=== PATIENT | female | born 1975 | race Caucasian/White ===

== ENCOUNTER 2024-09-12 03:04 | Inpatient (IN) | payer OTHER, SELFPAY ==
[2024-09-11 18:11] VITALS: BP 140/93
--- NOTE | 2024-09-11 18:31 | ED.GENMED ---
History of Present Illness
General
Chief Complaint: Abdominal Pain
Source: patient
Exam Limitations: none
Time Seen by Provider: 09/11/24 18:31
Nursing documentation reviewed up to this point in time: agreed with
History of Present Illness
History of Present Illness:
Note:
CHIEF COMPLAINT(S)
Abdominal pain and nausea.
HISTORY OF PRESENT ILLNESS
The patient is a 48-year-old female who presented with abdominal pain persisting since last night. The onset of her symptoms can be traced back approximately two weeks ago during a trip to [place], where she ingested oysters. The following day, she
and her daughter experienced symptoms consistent with food poisoning, including vomiting and diarrhea, with discomfort predominantly in the lower abdomen. By the Friday following, the patients pain had relocated to the upper abdomen, accompanied by
vomiting. After this episode, symptoms mostly resolved, but the patient noted intermittent diarrhea, which she ascribes to her irritable bowel syndrome. Last night, around 8:00 PM, the patients upper abdominal pain reemerged, characterized by severe
and persistent discomfort that she described as a intense pain. She likened the sensation to her insides being a balloon under pressure. The pain is diffuse but more pronounced on the right side, with occasional extension to the flanks. It is
described as constant, with periods of stabbing pain and persistent discomfort that does not relieve after bowel movements, but subsided briefly following an episode of vomiting. The patient reported a brief period of sleep following vomiting last
night, but awoke with the pain continuing. The patient denies blood in stools, melena, and regular use of non-steroidal anti-inflammatory drugs. She has a history of hypertension, well-controlled on lisinopril 10 mg daily, and irritable bowel
syndrome. She reports occasional alcohol consumption but none daily. She previously underwent three sections. The patient expressed concern about the similarity of her symptoms to her sisters gallbladder issues, for which her sister
underwent surgery.
SOCIAL HISTORY
The patient has occasional alcohol use, consuming drinks a few times weekly, more frequently during vacations.
MEDICATIONS
- Lisinopril 10 mg daily for blood pressure control.
PHYSICAL EXAM
- Vital signs and nursing notes reviewed.
General: Patient is well appearing and in no acute distress; non-toxic
Skin: Warm and dry, no rashes or lesions
Head: Normocephalic, atraumatic
Eyes: Sclera non-icteric. EOMs intact.
Cardiac: Regular rate and rhythm, no murmurs
Peripheral Vascular: No lower extremity swelling or edema
Pulm: Normal respiratory effort, no wheezes, rales, or rhonchi
Abdomen: Diffuse abdominal tenderness to palpation, no guarding. Normoactive bowel sounds.
Neuro: CN II-XII intact, no focal neurologic deficits.
Psychiatric: Appropriate mood and affect.
PLAN
-CT scan of the abdomen and pelvis
-Pain management will be initiated with intravenous ketorolac (Toradol).
-Not requesting antiemetic at this time
-Patient was seen by a prior provider who requested hepatitis panel in light of recent illness and travel
DIFFERENTIAL DIAGNOSIS
The Differential Diagnosis includes, in no particular order and is not limited to:
1. Cholecystitis
2. Hepatitis
3. Peptic ulcer disease
4. Pancreatitis
5. Gastroenteritis
6. Irritable bowel syndrome exacerbation
7. Gastritis
8. Biliary colic
9. Food poisoning
10. Small bowel obstruction
CARE-UPDATE
09/11/24 - 21:06
CT scan reveals a mildly to moderately distended gallbladder without definitive wall thickening. Notable finding of common bile duct dilation measuring 8 mm with trace intrahepatic biliary dilation. Plan to obtain an ultrasound for further
evaluation of biliary structure abnormalities.
US reveals multiple small mobile tiny stones within the gallbladder. Gallbladder is distended with length of 10 cm. No evidence for gallbladder wall thickening or pericholecystic edema. There is mild diffuse intrahepatic bile duct dilation. The
common bile duct is dilated, measuring up to 10 mm.
CHART REVIEW
No prior ER physician documentation to review, no discharge summaries to review
MDM/DISPOSITION
The patient is a 48-year-old female who presented with abdominal pain persisting since last night. Primary in the upper abdomen. She is without fever. Labs reviewed, normal wbc count. Elevated LFTs. Normal T bili. Normal lipase. US concerning for
CBD dilation + gall stones, no signs of acute cholecystitis.
Reviewed case with ED attending. 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
Patient will require admission for MRCP for further evaluation in light of pain and LFT elevation.
No clinical suspicion for cholangitis, will not initiate antibiotics at this time.
Review of Systems
Review of Systems
All Other Systems: ROS reviewed and negative except as documented in HPI and ROS
Phy Exam
Physical Exam
Physical Exam:
see hpi
Course
Orders/Labs/Results
Orders:
Orders
09/11/24 18:50
0.9% Sodium Chloride 500 ml [Nss] 500 ml IV BOLUS
Ketorolac [Toradol] 15 mg IV NOW STA
09/11/24 18:51
CT Abd/pelvis W Iv Cont Urgent
Comment:
Reason For Exam: diffuse abdominal pain
09/11/24 19:11
Complete Blood Count/With Diff Urgent
Comprehensive Metabolic Panel Urgent
Hepatitis A Antibody, Total Urgent
Hepatitis B Core Ab, Total Urgent
Hepatitis B Surface Antibody Urgent
Hepatitis B Surface Antigen Urgent
Hepatitis C Antibody Urgent
Lipase Urgent
Comment: ADDON
09/11/24 20:16
Add On- LAB Urgent
Tests Added?: lipase
09/11/24 20:53
US Abdomen Limited Urgent
Comment:
Reason For Exam: ruq; biliary tree
09/11/24 21:19
Urinalysis Reflex To Culture Urgent
Date Specimen was Collected: 09/11/24
Time Specimen was Collected: 21:18
09/12/24 02:26
Admit/Transfer Patient As Directed
Co-Sign Provider:
Level of Care: Inpatient admission
Assign to:: Medical/Surgical
Physician / Group: Edward
Diagnosis: Cholelithiasis +/- Acute Cholecystitis
Reason for Hospitalization: Cholelithiasis +/- Acute Cholecystitis
Expected length of stay greater than two midnights?: Yes
ELOS- Estimated Length of Stay in days: 3
I certify the patient meets the requirements for IP care: Yes
Code Status As Directed
Resuscitation Status: Full Code
PRN Pain Medication Management As Directed
May give lesser potent ordered pain med per pt: Yes
preference::
Protocol:: Medication orders for pain may be administered in a
manner that supports deferring to patient preference
when the pt is:
- Requesting an ordered lesser potent pain medication.
Least to most potent pain medications are defined
as: acetaminophen < NSAID < tramadol < opioids
(morphine, oxycodone, hydromorphone).
- Requesting a lesser dose of the same medication IF
ORDERED.
- Requesting a less intrusive route of administration
if both routes are prescribed by the provider (PO <
IV).
09/12/24 03:46
0.9% Sodium Chloride 1000 ml [Nss] 1,000 ml IV 125 mls/hr
Acetaminophen [Tylenol] 650 mg PO Q4HPRN PRN
HYDROmorphone [Dilaudid] 0.5 mg IV Q4HPRN PRN
Ketorolac [Toradol] 10 mg IV Q6HPRN PRN
Ondansetron Injectable [Zofran] 4 mg IV Q6HPRN PRN
09/12/24 03:46
Consult Notification Routine
Specialty to Notify: Surgical
Date consulting provider notified: 09/12/24
Time consulting provider notified: 07:03
Notified:: Provider
GASTROINTESTINAL CONSULT Routine
Consulting Provider: Theron Marrufo
Was physician already notified: Yes
Reason for consult: Cholelithiasis +/- Acute Cholecystitis
SURGICAL CONSULT Routine
Consulting Provider: Manuel Harrington
Was physician already notified: No
Reason for consult: Cholelithiasis +/- Acute Cholecystitis
Activity As Directed
Activity Level: Ambulate
I/O [Intake/ Output] As Directed
Frequency: Per unit guidelines
Pneumatic Compression Sleeves As Directed
Type: Knee high
Vital Signs As Directed
Frequency: Per unit guidelines
Oxygen Therapy [O2 Therapy] [RESP] Routine
Titrate/Wean O2 to maintain O2 sat greater than (%): 94
DX Deep Vein Thrombosis Video Routine
09/12/24 04:00
Piperacillin/Tazo 3.375 Gram [Zosyn] 3.375 gram in 50 ml IV Q6H
09/12/24 Breakfast
NPO
Allow oral meds: Yes
Allow clear liquids: Sips of Clears
Basic Metabolic Panel IN AM
Complete Blood Count/No Diff IN AM
LFT [Xieux-[id number]-[id number]] IN AM
MR Abdomen W/o & W Contrast IN AM
Comment: MRCP
Reason For Exam: Abd Pain, Abnormal LFTs
Recent pill cam endoscopy?: No
09/12/24 08:00
Lisinopril [Zestril] 10 mg PO DAILY
Pantoprazole [Protonix IV] 40 mg IV DAILY
Abnormal Lab Results
09/11/24 09/11/24
19:11 21:19
Hgb 11.5 L g/dL
(12.0-16.0)
Hct 36.5 L %
(37.0-47.0)
MCH 25.8 L pg
(27.0-31.0)
MCHC 31.5 L g/dL
(33.0-37.0)
RDW 16.5 H %
(11.5-14.5)
Plt Count 415 H 10^3/uL
(130-400)
Glucose 100 H mg/dl
(70-99)
AST 407 H U/L
(14-36)
ALT 257 H U/L
(0-35)
Urine Ketones 2+ A
(Negative)
09/11/24 19:11
09/11/24 19:11
Vital Signs
Initial and Last Documented VS:
Initial Vital Signs
Temp Pulse Resp BP Pulse Ox
98.6 F 83 18 140/93 98
09/11/24 18:11 09/11/24 18:11 09/11/24 18:11 09/11/24 18:11 09/11/24 18:11
Last Documented Vital Signs
Temp Pulse Resp BP Pulse Ox
98.5 F 88 18 163/104 96
09/12/24 04:00 09/12/24 04:00 09/12/24 04:00 09/12/24 04:00 09/12/24 04:00
*Pulse Oximetry
SaO2: 98
Oxygen Mode of Delivery: Room air
Patient hypoxic: no
*Critical Care Note
Total Time (30-74mins, 75-104mins- exclusive of procedures): Not Applicable
ED Attending Note
-
Portions of this chart may have been created with voice recognition software.� Occasional wrong word or��sound alike� substitutions may have occurred due to the inherent limitations of voice recognition software.
Discharge Plan
Departure
Patient Disposition: Admit
Date of Disposition: 09/12/24
Time of Disposition: 00:59
Presentation/result/management discussed w/ accepting MD/DO: Hospitalist
Patient with high blood pressure during this ER visit?: Yes
Condition: Good
Discharge Problem:
Common bile duct dilation, Epigastric abdominal pain
Interventions
Interventions:
*Risk Screen - Suicide Last Done: 09/12/24 04:17
*General Assessment Last Done: 09/11/24 19:20
*Neglect/Abuse Screening Last Done: 09/11/24 18:15
*ED- Fall Risk Assessment Last Done: 09/11/24 19:20
*ED COVID-19 Vaccine History Last Done: 09/12/24 04:17
*Nursing Disposition Last Done: 09/12/24 03:47
CE-Gywlai-Shvxakvrni Assessment Last Done: 09/12/24 00:00
Discharge Date and Time
Discharge Date/Time: 09/12/24 03:48
[2024-09-11] MEDS: TORADOL 15 MG IV (19:12)
[2024-09-11] MEDS: NSS 500 IV (19:12)
[2024-09-11 19:23] LABS: Hematocrit 36.5 % (37.0-47.0); Hemoglobin 11.5 g/dL (12.0-16.0); Mean Corp Hgb Conc. 31.5 g/dL (33.0-37.0); Mean Corpuscular Volume 81.8 fL (81.0-99.0); Nucleated Red Blood Cells % 0 %; Platelet Count 415 10^3/uL (130-400); Red Cell Dist. Width 16.5 % (11.5-14.5)
[2024-09-11 19:49] LABS: ALT (SGPT) 257 U/L (0-35); AST (SGOT) 407 U/L (14-36); Albumin 4.5 g/dl (3.5-5.0); Alkaline Phosphatase 87 U/L (38-126); Blood Urea Nitrogen 9 mg/dl (7-17); Calcium 9.3 mg/dl (8.4-10.2); Carbon Dioxide 25 mmol/L (22-30); Chloride 105 mmol/L (98-107); Glucose 100 mg/dl (70-99); Potassium 4.4 mmol/L (3.5-5.1); Sodium 137 mmol/L (135-145); Total Protein 7.4 g/dl (6.3-8.2); eGFR > 60.00
[2024-09-11 20:24] LABS: Hepatitis B Surface Antigen Negative (Negative)
[2024-09-11 20:43] LABS: Hepatitis C Antibody Negative (Negative)
[2024-09-11 20:47] LABS: Lipase 273 U/L (23-300)
[2024-09-11 21:17] VITALS: BP 148/90
[2024-09-11 21:34] LABS: Urine Character Clear (Clear)
[2024-09-11 22:00] VITALS: BP 143/97
[2024-09-11 22:27] LABS: Hepatitis A Antibody, Total Negative (Negative)
[2024-09-12 01:34] VITALS: BP 178/90
[2024-09-12 01:37] VITALS: BP 145/82
--- NOTE | 2024-09-12 02:29 | HPS.HSE ---
Family Physician
-
Family Physician: Ayana Salamanca
Chief Complaint
-
Abd Pain
History of Present Illness
Patient is a 48y F with PMH significant for IBS who presents to ED complaining of abdominal pain. Patient states that she was on vacation in [place] 2 weeks ago when she developed crampy abdominal pain with N/V/D. She had eaten oysters the
evening prior. Her symptoms improved after several days and she felt fairly well until last PM when her abdominal pain returned. Patient reports pain in the upper abdomen - mostly the RUQ. Mild nausea without emesis this time. She reports
intermittent chills but did not check her temperature. Patient presented to the ED for further evaluation and treatment.
She states that she had beef and shrimp tacos for dinner prior to onset of these symptoms.
Patient notes that her sister and brother have both had gallstone disease requiring cholecystectomy.
Medical History
Past Medical History
Past Medical History: Reports Other
Additional Past Medical History:
IBS
Hypertension
Past Surgical History: Reports Other
Additional Past Surgical History:
x 3
Social History
Tobacco: Former Smoker (Quit smoking 25 years ago. < 10 pack years total use.)
Alcohol: Occasional
Drug: None
Family History
Family History: Other (gallstone disease)
Allergies / Home Medications
Allergies reflects when Allergies were last updated in [facility].
Home Medications with original date entered in [facility]
Allergy/Medication List:
Allergies
Allergy/AdvReac Type Severity Reaction Status Date / Time
sulfamethoxazole (From Allergy Mild Rash Verified 09/11/24 18:14
Bactrim)
trimethoprim (From Bactrim) Allergy Mild Rash Verified 09/11/24 18:14
Home Medications
lisinopril 10 mg tablet 10 mg PO DAILY 09/12/24
Review of Systems
-
History Source: Patient
A 12 point ROS was completed and negative except as noted: Yes
Constitutional: Reports Fatigue and Chills; Denies Fever
Respiratory: Denies Cough or Trouble Breathing
Cardiac: Denies Chest Pain or Palpitations
Abdomen/GI: Reports Abdominal Pain, Nausea and Vomiting; Denies Diarrhea, Constipated, Bloody Stools or Black Stools
: Denies Dysuria or Frequency
Musculoskeletal: Denies Joint Pain or Edema
Neurological: Denies Dizzy or Headache
Physical Exam
Vital Signs
Vital Signs
Temp Pulse Resp BP Pulse Ox
98.5 F 82 16 145/82 99
09/12/24 01:37 09/12/24 01:37 09/12/24 01:37 09/12/24 01:37 09/12/24 01:37
Physical Exam
General: Other (48y F in no acute distress.)
HEENT: Moist mucous membranes
Respiratory: Clear; No Wheezes, Rales or Rhonchi
Cardiac: S1/S2 and Regular Rhythm; No Murmur
GI: Soft, Non Distended, Normal Bowel Sounds and Other (Mild RUQ tenderness without rebound or guarding.)
Musculoskeletal: No Clubbing, No Cyanosis and No Edema
Neuro: AO x 3
Laboratory Results
-
09/11/24 19:11
09/11/24 19:11
Laboratory Results
Total Bilirubin 1.1 mg/dl (0.2-1.3) 09/11/24 19:11
AST 407 U/L (14-36) H 09/11/24 19:11
ALT 257 U/L (0-35) H 09/11/24 19:11
Alkaline Phosphatase 87 U/L (38-126) 09/11/24 19:11
Lipase 273 U/L (23-300) 09/11/24 19:11
Impression/Plan
-
A/P: Patient is a 48y F with PMH significant for IBS who presents to ED complaining of abdominal pain.
Cholelithiasis +/- Acute Cholecystitis
- Admit for further evaluation and treatment.
- CT / US done in the ED show multiple tiny gallstones and CBD dilated to 8-10mm (depending on study).
- Intra-hepatic lesions (cysts / hemangiomas?) also noted.
- No pericholecystic fluid or wall thickening appreciated.
- Abnormal LFTs (transaminitis only - normal Bili / Allk Phos).
- Pain control, antiemetics, etc.
- MRCP in AM for further evaluation. GI consulted.
- Surgery evaluation as well to discuss potential cholecystectomy.
- Cover for now with abx given reported rigors / chills.
- Follow for any new / recurrent symptoms.
Benign Hypertension
- Stable. Continue lisinopril.
DVT Prophylaxis: SCDs
Code Status: Full
[2024-09-12 04:00] VITALS: BP 163/104
[2024-09-12] MEDS: NSS 1000 IV ×3 (04:00→22:07)
[2024-09-12] MEDS: ZOFRAN 4 MG IV ×2 (04:00→19:08)
--- NOTE | 2024-09-12 04:00 | PTCARENOTE ---
Pt admitted from ED, arrived via stretcher, able to ambulate into room. Pt assessed, vitals obtained, see flowsheets. Plan of care explained, call gonzalez within reach. Will continue to monitor.
[2024-09-12] MEDS: ZOSYN 50 IV ×4 (04:01→21:31)
[2024-09-12 04:04] VITALS: BMI 31.0
--- NOTE | 2024-09-12 05:54 | CON.GI ---
Consultation
-
Date/Time Consultation Requested: 09/12/24, 034
Date/Time Consultation Performed: 09/12/24, 05
Requesting Provider: Augie Leon
Performing Provider: Theron Marrufo
Reason for Consultation: Cholelithiasis +/- Acute cholecystitis
Medical History
Chief Complaint / HPI
Chief Complaint: Abdominal Pain
History of Present Illness:
Ms. Barnes is a 48 y.o female with a past medical history significant for IBS who presented to the ED with abdominal pain. Found to have elevated LFTs and biliary ductal dilatation on CT/US imaging concerning for choledocholithiasis. GI has been
consulted for further evaluation and management.
Patient states her symptoms started about two weeks ago when she was away on vacation in [place]. Developed crampy, intermittent abdominal pain along with with nausea and NBNB emesis. Notes eating oysters prior to onset of symptoms. Denies any
similar symptoms in the past. Her symptoms eventually improved with near resolution of her abdominal pain until last evening when she developed recurrent RUQ abdominal discomfort after dinner, had tacos for dinner. Otherwise, denies any fevers or
night sweats but notes occasional chills. Denies any bloody or dark stools. She is not on any aspirin or other blood thinners. Given her worsening abdominal pain, she came into the ED for further evaluation.
In the ED, patient was afebrile and HD-stable. Labs notable for AST 407, ALT 257, ALP 87, and T Bili 1.1. Lipase 273. Hepatitis panel (-), only noting (+) HBsAB c/w immunity. CBC without leukocytosis and Hgb 11.5 with MCV 81[address]
Abd/pelvis revealed mild intrahepatic biliary ductal dilatation as well as mild extrahepatic biliary ductal dilatation with CBD measuring up to 8 without any obvious choledocholithiasis or calcified gallstones. Additionally, several incidental
hepatic lesions as well. Abd US with cholelithiasis with multiple small mobile tiny stones within the gallbladder and distended GB without thickening or edema along with mild diffuse intrahepatic and extrahepatic biliary ductal dilatation with CBD
measuring up to 10 mm. No evidence of any focal hepatic lesion. She was kept NPO and admitted to medicine and ordered for MRI/MRCP for further evaluation.
Past Medical History
Past Medical History: Other (HTn and IBS)
Past Surgical History: Other ( x 3)
Social History
Tobacco: Former Smoker
Alcohol: Occasional
Drug: None
Family History
Family History: Other (Hx of gallstone disease)
Allergies / Home Medications
Allergy/AdvReac Type Severity Reaction Status Date / Time
sulfamethoxazole (From Allergy Mild Rash Verified 09/11/24 18:14
Bactrim)
trimethoprim (From Bactrim) Allergy Mild Rash Verified 09/11/24 18:14
�Medication �Instructions �Recorded
lisinopril 10 mg tablet 10 mg PO DAILY 09/12/24
Review of Systems
-
All other systems: A 12 pt ROS was Negative except as stated above in HPI
Vital Signs
Temp Pulse Resp BP Pulse Ox
98.5 F 88 18 163/104 96
09/12/24 04:00 09/12/24 04:00 09/12/24 04:00 09/12/24 04:00 09/12/24 04:00
Physical Exam
Exam
General: Well Developed, Well Nourished and No Apparent Distress
HEENT: Normocephalic, Anicteric and Moist Mucous Membranes
Respiratory: Other (Normal WOB on room air)
GI: Soft, Non Tender and Non Distended
Skin: Warm
Neuro: AO x 3 and Nonfocal/Grossly Intact
Psych: Calm
Results
WBC 6.5 10^3/uL (4.8-10.8) 09/11/24 19:11
Hgb 11.5 g/dL (12.0-16.0) L 09/11/24 19:11
Hct 36.5 % (37.0-47.0) L 09/11/24 19:11
MCV 81.8 fL (81.0-99.0) 09/11/24 19:11
Plt Count 415 10^3/uL (130-400) H 09/11/24 19:11
Absolute Neuts (auto) 4.7 10^3/uL (1.4-6.5) 09/11/24 19:11
Sodium 137 mmol/L (135-145) 09/11/24 19:11
Potassium 4.4 mmol/L (3.5-5.1) 09/11/24 19:11
Chloride 105 mmol/L (98-107) 09/11/24 19:11
Carbon Dioxide 25 mmol/L (22-30) 09/11/24 19:11
BUN 9 mg/dl (7-17) 09/11/24 19:11
Creatinine 0.7 mg/dL (0.6-1.0) 09/11/24 19:11
Calcium 9.3 mg/dl (8.4-10.2) 09/11/24 19:11
Total Bilirubin 1.1 mg/dl (0.2-1.3) 09/11/24 19:11
AST 407 U/L (14-36) H 09/11/24 19:11
ALT 257 U/L (0-35) H 09/11/24 19:11
Alkaline Phosphatase 87 U/L (38-126) 09/11/24 19:11
Lipase 273 U/L (23-300) 09/11/24 19:11
Hepatitis A IgM Ab Cancelled 09/11/24 19:11
Hepatitis A Ab Total Negative (Negative) 09/11/24 19:11
Hep Bs Antibody Positive 09/11/24 19:11
Hep B Core Total Ab Negative (Negative) 09/11/24 19:11
Hep B Core IgM Ab Cancelled 09/11/24 19:11
Hepatitis C Antibody Negative (Negative) 09/11/24 19:11
Diagnostic Image Results: As detailed above per HPI
Assessment / Plan
-
Ms. Barnes is a 48 y.o female with a past medical history significant for IBS who presented to the ED with abdominal pain. Found to have elevated LFTs and biliary ductal dilatation on CT/US imaging concerning for choledocholithiasis. GI has been
consulted for further evaluation and management.
#Elevated LFTs
#Biliary Ductal Dilatation
#Abdominal Pain #Biliary Colic
#Cholelithiasis
Impression: Patient presenting with typical biliary colic and found to have elevated LFTs and intrahepatic and extrahepatic biliary ductal dilatation on prior US and CT imaging concerning for choledocholithiasis. Otherwise, she is without any signs
of cholangitis. Her pain is currently resolved along with down-trending LFTs and may have passed a small stone and/or sludge. Would benefit from a MRI/MRCP WWO contrast for further evaluation to exclude any retained CBD stones and would benefit from
eventual cholecystectomy this admission.
Recommendations:
- Keep NPO pending MRI. Once MRI performed, okay to trial CLD
- Trend LFTs q daily, currently improving
- Previous hepatitis panel negative, will obtain HAV IgM for completion as well
- Ordered MRI/MRCP WWO contrast for further evaluation of previous biliary ductal dilatation
- No plans for ERCP at this time, will await MRI/MRCP
- Remains on IV abx as started by primary team, but no symptoms to suggest cholangitis along with reassuring T Bili
- Surgery consulted, appreciate recs
- Pain control and IV anti-emetics PRN
- Rest of care per primary team
#Normocytic Anemia
Unclear baseline and denies any bloody or dark stools. Hgb 11s with repeat Hgb 10.4.
- Trend Hgb with CBC q daily
- Ordered iron studies along with ferritin along with folate and B12
Discussed with primary internal medicine team. GI will continue to follow. Please call with any questions or concerns.
Data Reviewed
-
Radiology: Image Personally Visualized and interpreted and Report Reviewed by me
CT Scan: Image Personally Visualized and interpreted and Report Reviewed by me
Ultrasound: Image Personally Visualized and interpreted and Report Reviewed by me
-
-
Thank you for consultation and allowing me to participate in the patient's care. Please call the transformation specialist GI physician during the after hours with any questions or concerns.
[2024-09-12 07:00] VITALS: BP 145/96
[2024-09-12 07:45] LABS: Hematocrit 33.1 % (37.0-47.0); Hemoglobin 10.4 g/dL (12.0-16.0); Mean Corp Hgb Conc. 31.4 g/dL (33.0-37.0); Mean Corpuscular Volume 82.1 fL (81.0-99.0); Platelet Count 396 10^3/uL (130-400); Red Cell Dist. Width 16.4 % (11.5-14.5)
[2024-09-12] MEDS: ZESTRIL 10 MG PO (07:58)
[2024-09-12] MEDS: NSS (PRESERVATIVE FREE) 10 ML IV (07:58)
[2024-09-12] MEDS: PROTONIX IV 40 MG IV (07:59)
[2024-09-12 08:08] LABS: ALT (SGPT) 185 U/L (0-35); AST (SGOT) 128 U/L (14-36); Albumin 4.1 g/dl (3.5-5.0); Alkaline Phosphatase 70 U/L (38-126); Blood Urea Nitrogen 10 mg/dl (7-17); Calcium 8.7 mg/dl (8.4-10.2); Carbon Dioxide 24 mmol/L (22-30); Chloride 108 mmol/L (98-107); Estimated Creatinine Clearance 96 ml/min; Glucose 106 mg/dl (70-99); Potassium 4.3 mmol/L (3.5-5.1); Sodium 139 mmol/L (135-145); Total Protein 6.8 g/dl (6.3-8.2); eGFR > 60.00
[2024-09-12] MEDS: TORADOL 10 MG IV ×3 (08:10→21:31)
[2024-09-12] MEDS: TYLENOL 650 MG PO (09:45)
--- NOTE | 2024-09-12 11:09 | W.PN.HOSP.TC ---
Today's Communication/Plan
-
MRCP
Can continue antibiotics for now
Trend LFTs
Assessment / Plan
Assessment / Plan
Physical Exam
General: Other (48y F in no acute distress.)
HEENT: Moist mucous membranes
Respiratory: Clear; No Wheezes, Rales or Rhonchi
Cardiac: S1/S2 and Regular Rhythm; No Murmur
GI: Soft, Non Distended, Normal Bowel Sounds and Other (Mild RUQ tenderness without rebound or guarding.)
Musculoskeletal: No Clubbing, No Cyanosis and No Edema
Neuro: AO x 3
A/P: Patient is a 48y F with PMH significant for IBS who presents to ED complaining of abdominal pain.
#Cholelithiasis
#Transaminitis
#Abdominal pain
#Biliary colic
#Biliary ductal dilation
- CT / US done in the ED show multiple tiny gallstones and CBD dilated to 8-10mm (depending on study).
- Intra-hepatic lesions (cysts / hemangiomas?) also noted.
- MRCP
� GI consulted.
- Surgery evaluation as well to discuss potential cholecystectomy.
- Cover for now with abx given reported rigors / chills.�Low threshold to stop, will await MRI
- Pain control, antiemetics
� Trend LFTs
#Intrahepatic hepatic lesions
- Follow-up outpatient
#Normocytic anemia
� Unclear baseline, denies dark or bloody stools
� Trend CBC
� Follow-up iron studies, B12, folate
Benign Hypertension
- Stable. Continue lisinopril.
DVT Prophylaxis: HSQ
Code Status: Full
Anticipated Discharge: 24 - 48 hours
Subjective/Interval History
-
Date of Service: September 12, 2024
Abdominal pain still intermittent
Objective Data
-
Labs:
Laboratory Results
09/12/24
07:24
WBC 7.1
Hgb 10.4 L
Hct 33.1 L
Plt Count 396
Sodium 139
Potassium 4.3
Chloride 108 H
Carbon Dioxide 24
BUN 10
Creatinine 0.7
Glucose 106 H
Calcium 8.7
Total Bilirubin 1.0
AST 128 H
ALT 185 H
Alkaline Phosphatase 70
Vital Signs:
Vital Signs
Temp Pulse Resp BP Pulse Ox
98.5 F 84 16 145/96 96
09/12/24 07:00 09/12/24 07:58 09/12/24 07:00 09/12/24 07:58 09/12/24 07:00
Review of Systems
-
History Source: Patient
All other systems: Not reviewed unless documented
Data Reviewed
-
CT Scan: Report Reviewed by me
Ultrasound: Report Reviewed by me
--- NOTE | 2024-09-12 12:53 | CON.GS ---
Consultation
-
Date/Time Consultation Requested: 09/12/2024 @8:00
Date/Time Consultation Performed: 09/12/2024 @10:00
Requesting Provider: Augie Leon DO
Performing Provider: Waldemar Harrington MD
Reason for Consultation: Abdominal pain
Medical History
-
Chief Complaint: Abdominal pain for 2 weeks
History of Present Illness:
48-year-old female with hypertension and irritable bowel syndrome who presented to the ED last night with upper abdominal pain that began 2 weeks ago. The pain started after eating oysters in [place] and she thought it was due to food poisoning.
She had crampy epigastric pain that radiated to both sides of her abdomen occasionally to her back. She also had associated nausea vomiting and diarrhea without fevers or chills. She slowly recovered and was feeling relatively well until last
night when she developed similar pain after eating tacos. There was no vomiting but she did have nausea. She also had chills but no fever. Her bowels have been fairly regular and she denies any bleeding. She has not undergone any previous
abdominal surgery with exception of C-sections.
While in the ED she remains afebrile her vital signs are stable. White count is normal at 6.5. She had mild elevation of her AST and ALT but her bilirubin, alkaline phosphatase, and lipase were normal. A CT scan of the abdomen and pelvis with IV
contrast did not reveal any gallstones or evidence of acute cholecystitis. There was mild central intrahepatic ductal dilatation and the common bile duct measured 8 mm. There were no other significant findings with the exception of incidental
uterine fibroids and hepatic cysts/hemangioma. An ultrasound revealed multiple small mobile tiny stones within the gallbladder but there is no gallbladder distention or evidence of cholecystitis. There is also mild diffuse intrahepatic ductal
dilatation in the common bile duct measures 10 mm.
Past Medical History
Past Medical History: HTN and Other (IBS)
Past Surgical History: (x3)
Social History
Tobacco: Former Smoker
Alcohol: Occasional
Drug: None
Personal:
Living: With Family
Family History
Family History: Other (Sister had a recent cholecystectomy has not recovered well.)
Allergies / Home Medications
Allergy/AdvReac Type Severity Reaction Status Date / Time
sulfamethoxazole (From Allergy Mild Rash Verified 09/11/24 18:14
Bactrim)
trimethoprim (From Bactrim) Allergy Mild Rash Verified 09/11/24 18:14
�Medication �Instructions �Recorded �Confirmed �Type
lisinopril 10 mg tablet 10 mg PO DAILY Blood Pressure 09/12/24 09/12/24 History
Review of Systems
-
History Source: Patient
All other systems: Negative unless noted
A 10 point review of systems was completed, and was negative except as per HPI.
Physical Exam
Vital Signs
Temp Pulse Resp BP Pulse Ox
98.5 F 84 16 145/96 96
09/12/24 07:00 09/12/24 07:58 09/12/24 07:00 09/12/24 07:58 09/12/24 07:00
09/11/24 09/12/24 09/13/24
06:59 06:59 06:59
Actual Weight 79.407 kg
Body Mass Index (BMI) 31.0
Lab Results
09/12/24 07:24
09/12/24 07:24
WBC 7.1 10^3/uL (4.8-10.8) 09/12/24 07:24
Hgb 10.4 g/dL (12.0-16.0) L 09/12/24 07:24
Hct 33.1 % (37.0-47.0) L 09/12/24 07:24
Plt Count 396 10^3/uL (130-400) 09/12/24 07:24
Abs Immat Gran (auto) 0.0 10^3/uL (0-0.05) 09/11/24 19:11
Neutrophils % 71.4 % (42.2-75.2) 09/11/24 19:11
Physical Exam
General: Well Developed, Well Nourished and No Apparent Distress
HEENT: Anicteric
Respiratory: Clear
Cardiac: Regular Rhythm
GI: Soft, Non Tender and Non Distended
Musculoskeletal: No Edema
Neuro: Awake and Alert
Data Reviewed
-
CT Scan: Image Personally Visualized and interpreted, Report Reviewed by me and Discussed with Patient
Ultrasound: Image Personally Visualized and interpreted, Report Reviewed by me and Discussed with Patient
Labs: Labs Reviewed by me and Discussed with Patient
Assessment / Plan
-
48-year-old female with mild hepatic ductal dilatation, mild elevation of her transaminases, and small stones in her gallbladder on ultrasound. I suspect she passed a small stone as her LFTs and her symptoms have improved since admission. There is
no evidence of cholangitis or acute cholecystitis.
She has been seen by the GI service and the plan is for MRCP to evaluate the bile ducts. She has also been started on antibiotics by her hospitalist.
If there are stones present on MRCP, the plan is for an ERCP. If the MRCP is normal, I recommend a cholecystectomy (with or without a cholangiogram depending upon her LFTs and MRCP findings). The role of surgery is to prevent further episodes of
choledocholithiasis. Risks of surgery include, but are not limited to, bleeding, infection, adhesions, hernias, injury to other structures, bile leak, DVT, cardiopulmonary complications, and the risks of anesthesia. I also reviewed the typical
recovery both in and out of the hospital as well as the functional results. We also discussed the timing of surgery and she wishes to proceed as soon as possible. I have tentatively added her onto the OR schedule tomorrow and explained that I may
or may not be the attending surgeon. If started on clear liquids after the MRCP, please make n.p.o. after midnight.
[2024-09-12] MEDS: HEPARIN 5000 UNITS SC ×2 (14:59→22:07)
[2024-09-12 15:05] VITALS: BP 139/98
--- NOTE | 2024-09-12 15:28 | W.PN.UPDATE ---
Update Note
Progress Note Update
Brief GI Note:
Personally reviewed recent MRI/MRCP, no evidence of choledocholithiasis, strictures, or other obvious intraluminal filling defects within the biliary tree. Clinically, she passed a stone and/or sludge and her LFTs further support this given her
down-trending transaminases without any biliary obstruction. In regards to the gallbladder thickening / edema, doubt this is related to cholecystitis based on her exam. Further, can often find reactive wall thickening which can usually be seen in
transient biliary obstruction. Regardless, she remains asymptomatic on IV antibiotics.
Recommendations:
- Okay to trial CLD this afternoon, would keep NPO at [facility] for possible OR if planned with surgery
- Trend LFTs q daily along with T bili
- Favor continuing IV abx for now in light of recent MRI/MRCP findings but very low suspicion for cholecystitis
- No plans for either EUS or ERCP at this time given (-) MRCP
- Proceed with lap raine +/- IOC as per general surgery
- Pain control and IV anti-emetics PRN
- In regards to her hepatic hemangioma, no surveillance is required in regards to this. She may still follow-up in the GI office for follow-up after her hospitalization
- If evidence of SANTOS on her labs, would consider EGD/Colon as outpatient
- Rest of care as per primary team
Discussed with internal medicine team. GI will sign-off, please recontact with any questions or concerns.
[2024-09-12] MEDS: OFIRMEV 100 IV (19:54)
[2024-09-12] MEDS: COMPAZINE 5 MG IV (19:55)
[2024-09-12 22:26] VITALS: BP 135/86
[2024-09-13] VITALS (9 sets, daily range): BP systolic 99–146; BP diastolic 59–90
[2024-09-13] MEDS: ZOSYN 50 IV ×3 (03:20→21:25)
[2024-09-13] MEDS: NSS 1000 IV ×2 (06:58→19:58)
--- NOTE | 2024-09-13 08:01 | W.PN.GS2 ---
Today's Communication / Plan
-
-- Laparoscopic cholecystectomy with possible IOC
Assessment / Plan
-
Patient is a 48 yo F p/w symptomatic cholelithiasis likely choledocholithiasis with passed stone
CT Abdomen/Pelvis (720 07/2024): Mildly dilated gallbladder, no evidence of stones or radiographic evidence of acute cholecystitis, mild dilation of the CBD 8 mm several hepatic lesions
US Abdomen (09/11/2024): Multiple small gallstones, distended gallbladder, no evidence of cholecystitis (gallbladder wall thickening or pericholecystic fluid), dilation of the CBD to 10 mm
MRI Abdomen (09/12/2024): Minimal edema along the gallbladder wall, CBD measuring 8.6 mm no evidence of obstructing mass or calculus, 2 cysts within the liver, 2.6 cm hemangioma of the RIGHT lobe
AVSS
Repeat labs pending
The natural history and pathophysiology of biliary and stone disease was discussed. Workup thus far was reviewed. Role of cholecystectomy in preventing future attacks of cholecystitis or choledocholithiasis were reviewed. Recommend and plan for
cholecystectomy.
Plan for a laparoscopic cholecystectomy with possible cholangiogram. The procedure itself, as well as the risks, benefits, and alternatives was discussed. Specifically, we discussed the risks of bleeding, infection, injury to surrounding
structures (bowel, bile ducts), CBD injury, need for open procedure. Typical postprocedural coverage including pain management, activity restrictions, and the 10 to 20% risk of fluctuations in GI function were discussed. All questions answered.
Consent signed.
-- Laparoscopic cholecystectomy with possible IOC
-- NPO, IVF
-- Abx: Zosyn
Subjective Data
-
Date of Service: September 13, 2024
Abdominal discomfort has improved, symptoms on presentation have resolved. Does report some mild RLQ RUQ discomfort. Episode of vomiting yesterday evening. No fevers or chills. She denies any jaundice, pale stools, or tea colored urine during
this particular episode. As previously noted, she had a similar episode approximately 2 weeks ago, but denies any prior attacks of similar abdominal discomfort over the years.
Objective Data
-
Intake and Output
09/12/24 09/13/24 09/14/24
06:59 06:59 06:59
Intake Total 1000 / 1000 1500 / 1500
Balance 1000 / 1000 1500 / 1500
Intake:
IV fluids (Total) 1000 / 1000 1500 / 1500
Other:
Number of approximated LARGE 3 3
amounts of urine
Vital Signs
Temp Pulse Resp BP Pulse Ox
98.0 F 76 20 146/90 97
09/13/24 07:10 09/13/24 07:10 09/13/24 07:10 09/13/24 07:10 09/13/24 07:10
Calcium 8.7 mg/dl (8.4-10.2) 09/12/24 07:24
Total Bilirubin 1.0 mg/dl (0.2-1.3) 09/12/24 07:24
Direct Bilirubin 0.4 mg/dl (0.0-0.4) 09/12/24 07:24
AST 128 U/L (14-36) H 09/12/24 07:24
ALT 185 U/L (0-35) H 09/12/24 07:24
Alkaline Phosphatase 70 U/L (38-126) 09/12/24 07:24
Total Protein 6.8 g/dl (6.3-8.2) 09/12/24 07:24
Albumin 4.1 g/dl (3.5-5.0) 09/12/24 07:24
Physical Exam
-
Gen: NAD
Abd: soft, mild RUQ discomfort, ND, non-peritoneal, prior Pfannenstiel incision well-healed
Patient has a maynard catheter: No
Patient has a central line: No
--- NOTE | 2024-09-13 08:07 | W.SUR.PREOP ---
Pre-Operative Surgical Note
-
I have examined this patient prior to the performance of the scheduled procedure.
The patient's condition is unchanged from the time of the current History and
Physical and the patient is able to undergo the scheduled procedure.
[2024-09-13] MEDS: ZOSYN IV (08:44)
--- NOTE | 2024-09-13 10:02 | W.IMMPOSTOP ---
Surgical Immed Post Op Note
-
Primary Surgeon: Carlos
Assisting Surgeon: None
Pre-op Diagnosis: Choledocholithiasis
Post-op Diagnosis: Choledocholithiasis
Procedure Performed: Laparoscopic cholecystectomy with IOC and LCBDE
Anesthesia Type: General
Specimen / Cultures:
1. Gallbladder
Estimated Blood Loss: 3 cc
Complications: None
Operative Findings:
1. Elongated and distended GB, mild wall thickening
2. Critical view
3. IOC with no filling into duodenum, Glucagon, wire and catheter passed with eventual emptying, final run without persistent defect
4. Duct take with clips and 0 PDS Endoloop, artery with clips
[2024-09-13] MEDS: COMPAZINE 5 MG IV (11:12)
[2024-09-13] MEDS: HEPARIN 5000 UNITS SC ×3 (11:14→23:44)
[2024-09-13] MEDS: NSS (PRESERVATIVE FREE) 10 ML IV (11:15)
[2024-09-13] MEDS: PROTONIX IV 40 MG IV (11:15)
[2024-09-13] MEDS: ZESTRIL PO (11:21)
--- NOTE | 2024-09-13 11:33 | PTCARENOTE ---
Pt back in room after lap choley. VSS, pt vomiting, compazine given.
--- NOTE | 2024-09-13 12:05 | W.PN.HOSP.TC ---
Today's Communication/Plan
-
Status post laparoscopic scopic cholecystectomy today
Trend LFTs
Assessment / Plan
Assessment / Plan
Physical Exam
General: Other (48y F in no acute distress.)
HEENT: Moist mucous membranes
Respiratory: Clear; No Wheezes, Rales or Rhonchi
Cardiac: S1/S2 and Regular Rhythm; No Murmur
GI: Soft, Non Distended, Normal Bowel Sounds and Other (Mild RUQ tenderness without rebound or guarding.)
Musculoskeletal: No Clubbing, No Cyanosis and No Edema
Neuro: AO x 3
A/P: Patient is a 48y F with PMH significant for IBS who presents to ED complaining of abdominal pain.
#Cholelithiasis
#Transaminitis
#Abdominal pain
#Biliary colic
#Biliary ductal dilation
- CT / US done in the ED show multiple tiny gallstones and CBD dilated to 8-10mm (depending on study).
- Intra-hepatic lesions (cysts / hemangiomas?) also noted.
- MRCP with most likely indication of past stone and/or sludge
- Cover for now with abx given reported rigors / chills.
- Pain control, antiemetics
� Trend LFTs
�Laparoscopic cholecystectomy with IOC and L CBD E on 09/13, evidence of elongated and distended gallbladder, mild wall thickening, requiring catheter pass with eventual emptying, final read without persistent defect although if LFTs are trending up
we will need to engage GI
#Intrahepatic hepatic lesions/hemangioma
- Follow-up outpatient
#Normocytic anemia
� Unclear baseline, denies dark or bloody stools
� Trend CBC
� Follow-up iron studies, B12, folate
Benign Hypertension
- Stable. Continue lisinopril.
DVT Prophylaxis: HSQ
Code Status: Full
Total time spent on today's encounter was 51 minutes which included time spent in counseling the patient/family regarding diagnosis and treatment plan as listed above, goals of care, and symptom management. Case was discussed with nursing staff,
specialists, and care coordinators/case management. All labs and imaging personally reviewed by me. Remainder the time spent in detailed review of previous records, lab data, imaging, and other medical provider documentation.
Anticipated Discharge: 24 - 48 hours
Subjective/Interval History
-
Date of Service: September 13, 2024
For laparoscopic cholecystectomy today
Objective Data
-
Vital Signs:
Vital Signs
Temp Pulse Resp BP Pulse Ox
98.5 F 94 16 125/81 94
09/13/24 11:00 09/13/24 11:00 09/13/24 11:00 09/13/24 11:00 09/13/24 11:00
I&O
09/12/24 09/13/24 09/14/24
06:59 06:59 06:59
Intake Total 1000 / 1000 1500 / 1500 100 / 100
Balance 1000 / 1000 1500 / 1500 100 / 100
Review of Systems
-
History Source: Patient
All other systems: Not reviewed unless documented
Data Reviewed
-
CT Scan: Report Reviewed by me
Ultrasound: Report Reviewed by me
MRI: Report Reviewed by me
[2024-09-13 12:24] LABS: Hematocrit 31.7 % (37.0-47.0); Hemoglobin 9.9 g/dL (12.0-16.0); Mean Corp Hgb Conc. 31.2 g/dL (33.0-37.0); Mean Corpuscular Volume 83.2 fL (81.0-99.0); Platelet Count 380 10^3/uL (130-400); Red Cell Dist. Width 16.2 % (11.5-14.5)
[2024-09-13 13:22] LABS: ALT (SGPT) 161 U/L (0-35); AST (SGOT) 146 U/L (14-36); Albumin 4.1 g/dl (3.5-5.0); Alkaline Phosphatase 64 U/L (38-126); Blood Urea Nitrogen 5 mg/dl (7-17); Calcium 8.1 mg/dl (8.4-10.2); Carbon Dioxide 22 mmol/L (22-30); Chloride 107 mmol/L (98-107); Estimated Creatinine Clearance 112 ml/min; Glucose 178 mg/dl (70-99); Iron 40 ug/dl (37-170); Potassium 4.1 mmol/L (3.5-5.1); Sodium 135 mmol/L (135-145); Total Protein 7.0 g/dl (6.3-8.2); eGFR > 60.00
[2024-09-13 13:31] LABS: Total Iron Binding Capacity 483 ug/dl (265-497)
[2024-09-13 13:53] LABS: Ferritin 8.3 ng/ml (6.24-137)
[2024-09-13 14:24] LABS: Folate 9.0 ng/ml (2.76-20); Vitamin B12 485 pg/ml (239-931)
[2024-09-13] MEDS: ZOFRAN 4 MG IV (14:47)
--- NOTE | 2024-09-13 15:45 | CM ---
CM following re: discharge planning.
Reviewed pt's chart, met with pt.
Pt is a 48 year old female, admitted with primary dx of POD#0 Laparoscopic cholecystectomy with intraoperative
cholangiogram and laparoscopic common bile duct exploration.
Pt reports she lives with 2SH, 1 step to enter, has 3 supportive children. pt described herself as independent in all areas [employer], drives, works.
PCP: Ayana Salamanca
Pharmacy: [facility].
D/C plan: home with anticipated no needs. to transport.
CM will follow with discharge plan updates as needed.
[2024-09-13] MEDS: TORADOL 10 MG IV (19:59)
[2024-09-13] MEDS: TYLENOL 650 MG PO (19:59)
[2024-09-14 03:00] VITALS: BP 113/66
[2024-09-14] MEDS: ZOSYN 50 IV ×2 (03:00→10:14)
[2024-09-14] MEDS: TYLENOL 650 MG PO ×2 (03:03→15:18)
[2024-09-14] MEDS: TORADOL 10 MG IV (03:03)
[2024-09-14 07:18] LABS: Hematocrit 31.0 % (37.0-47.0); Hemoglobin 9.7 g/dL (12.0-16.0); Mean Corp Hgb Conc. 31.3 g/dL (33.0-37.0); Mean Corpuscular Volume 82.7 fL (81.0-99.0); Platelet Count 407 10^3/uL (130-400); Red Cell Dist. Width 16.4 % (11.5-14.5)
[2024-09-14 07:42] LABS: ALT (SGPT) 125 U/L (0-35); AST (SGOT) 57 U/L (14-36); Albumin 4.1 g/dl (3.5-5.0); Alkaline Phosphatase 60 U/L (38-126); Blood Urea Nitrogen 3 mg/dl (7-17); Calcium 8.1 mg/dl (8.4-10.2); Carbon Dioxide 23 mmol/L (22-30); Chloride 108 mmol/L (98-107); Estimated Creatinine Clearance 112 ml/min; Glucose 89 mg/dl (70-99); Potassium 3.9 mmol/L (3.5-5.1); Sodium 137 mmol/L (135-145); Total Protein 6.9 g/dl (6.3-8.2); eGFR > 60.00
--- NOTE | 2024-09-14 07:50 | W.PN.GS2 ---
Today's Communication / Plan
-
-- LFD
-- OK for DC from surgical perspective if pain controlled and tolerates diet
Assessment / Plan
-
Patient is a 48 yo F p/w symptomatic cholelithiasis likely choledocholithiasis with passed stone
POD#1 s/p laparoscopic cholecystectomy with IOC and LCBDE
CT Abdomen/Pelvis (720 07/2024): Mildly dilated gallbladder, no evidence of stones or radiographic evidence of acute cholecystitis, mild dilation of the CBD 8 mm several hepatic lesions
US Abdomen (09/11/2024): Multiple small gallstones, distended gallbladder, no evidence of cholecystitis (gallbladder wall thickening or pericholecystic fluid), dilation of the CBD to 10 mm
MRI Abdomen (09/12/2024): Minimal edema along the gallbladder wall, CBD measuring 8.6 mm no evidence of obstructing mass or calculus, 2 cysts within the liver, 2.6 cm hemangioma of the RIGHT lobe
AVSS
Repeat labs with downtrending WBC, stable Hb, normal electrolytes and renal function, normal bilirubin, downtrending LFTs, normal ALP
Recovering well overall. No need for further surgical intervention. Dietary advancement to low-fat diet. Discharge per GI and hospitalist. DC instructions updated. Follow-up in the office in 2 to 4 weeks.
-- LFD
-- HLIV
-- Abx: none further needed from surgical perspective
-- Pain control: Tylenol, Toradol, Oxycodone
-- DVT: SQH
-- DC instructions updated
Subjective Data
-
Date of Service: September 14, 2024
Doing well overall. Pain well-controlled. Issues with nausea yesterday afternoon and evening, denies any currently. Passing some flatus, no BM. No fevers or chills. Ambulating. Voiding.
Objective Data
-
Intake and Output
09/13/24 09/14/24 09/15/24
06:59 06:59 06:59
Intake Total 1500 / 1500 680 / 680
Balance 1500 / 1500 680 / 680
Intake:
Oral fluids 480 / 480
IV fluids (Total) 1500 / 1500 100 / 100
Normosal 100 / 100
IV piggybacks 100 / 100
Other:
Number of approximated MODERATE 3
amounts of urine
Number of approximated LARGE 3
amounts of urine
Vital Signs
Temp Pulse Resp BP Pulse Ox
99.3 F 87 14 113/66 95
09/14/24 03:00 09/14/24 03:00 09/14/24 03:00 09/14/24 03:00 09/14/24 03:00
Lab Results
09/14/24 05:38
09/14/24 05:38
Calcium 8.1 mg/dl (8.4-10.2) L 09/14/24 05:38
Total Bilirubin 0.9 mg/dl (0.2-1.3) 09/14/24 05:38
Direct Bilirubin 0.4 mg/dl (0.0-0.4) 09/12/24 07:24
AST 57 U/L (14-36) H 09/14/24 05:38
ALT 125 U/L (0-35) H 09/14/24 05:38
Alkaline Phosphatase 60 U/L (38-126) 09/14/24 05:38
Total Protein 6.9 g/dl (6.3-8.2) 09/14/24 05:38
Albumin 4.1 g/dl (3.5-5.0) 09/14/24 05:38
Physical Exam
-
Gen: NAD
Abd: soft, mild tenderness, ND, non-peritoneal, incisions c/d/i - no erythema, ecchymosis or drainage
Patient has a maynard catheter: No
Patient has a central line: No
[2024-09-14 08:20] VITALS: BP 143/86
[2024-09-14] MEDS: NSS (PRESERVATIVE FREE) 10 ML IV (08:45)
[2024-09-14] MEDS: PROTONIX IV 40 MG IV (08:45)
[2024-09-14] MEDS: HEPARIN 5000 UNITS SC ×2 (08:46→15:27)
[2024-09-14] MEDS: ZESTRIL 10 MG PO (08:46)
[2024-09-14 10:55] VITALS: BP 139/81
--- NOTE | 2024-09-14 11:47 | W.PN.HOSP.TC ---
Addendum entered and electronically signed by Glynn Carolina MD 09/14/24 17:11:
[id number]
Original Note:
Today's Communication/Plan
-
LFD
F/u GI outpatient for hepatic and angiomas and iron deficiency including requirement for EGD/colonoscopy
Follow-up surgery, GI outpatient
Assessment / Plan
Assessment / Plan
Physical Exam
General: Other (48y F in no acute distress.)
HEENT: Moist mucous membranes
Respiratory: Clear; No Wheezes, Rales or Rhonchi
Cardiac: S1/S2 and Regular Rhythm; No Murmur
GI: Soft, Non Distended,soft, mild tenderness, ND, non-peritoneal, incisions c/d/i - no erythema, ecchymosis or drainage
Musculoskeletal: No Clubbing, No Cyanosis and No Edema
Neuro: AO x 3
A/P: Patient is a 48y F with PMH significant for IBS who presents to ED complaining of abdominal pain.
#Cholelithiasis
#Transaminitis
#Abdominal pain
#Biliary colic
#Biliary ductal dilation
- CT / US done in the ED show multiple tiny gallstones and CBD dilated to 8-10mm (depending on study).
- Laparoscopic cholecystectomy with IOC and L CBD E on 09/13, evidence of elongated and distended gallbladder, mild wall thickening, requiring catheter pass with eventual emptying, final read without persistent defect
- MRCP with most likely indication of past stone and/or sludge
- Cover for now with abx given reported rigors / chills.
- Pain control, antiemetics
� Trend LFTs - improving
-Cont LFD, tolerating
-F/u GI and Surgery outpateitn
-DC abx - confirmed with surgery and GI
#Intrahepatic hepatic lesions/hemangioma
- Follow-up outpatient
#Normocytic anemia
#Iron deficiency Anemia
� Unclear baseline, denies dark or bloody stools
� Trend CBC
� F/u outpatient for possible EGD/SCope as needed
Benign Hypertension
- Stable. Continue lisinopril.
DVT Prophylaxis: HSQ
Code Status: Full
More than 30 minutes spent in discharge including
Final examination of the patient
Summarizing hospital stay
Instructions for continuing care to all relevant caregivers
Preparation of discharge records, prescriptions, and referral forms
Total time spent (in minutes): 36
Anticipated Discharge: Today
Subjective/Interval History
-
Date of Service: September 14, 2024
doing well, tolerated LFD this AM
Objective Data
-
Labs:
Laboratory Results
09/14/24
05:38
WBC 11.1 H
Hgb 9.7 L
Hct 31.0 L
Plt Count 407 H
Sodium 137
Potassium 3.9
Chloride 108 H
Carbon Dioxide 23
BUN 3 L
Creatinine 0.6
Glucose 89
Calcium 8.1 L
Total Bilirubin 0.9
AST 57 H
ALT 125 H
Alkaline Phosphatase 60
Vital Signs:
Vital Signs
Temp Pulse Resp BP Pulse Ox
98.7 F 85 18 139/81 96
09/14/24 10:55 09/14/24 10:55 09/14/24 10:55 09/14/24 10:55 09/14/24 10:55
I&O
09/13/24 09/14/24 09/15/24
06:59 06:59 06:59
Intake Total 1500 / 1500 680 / 680 290 / 290
Balance 1500 / 1500 680 / 680 290 / 290
Review of Systems
-
History Source: Patient
All other systems: Not reviewed unless documented
Data Reviewed
-
CT Scan: Report Reviewed by me
Ultrasound: Report Reviewed by me
MRI: Report Reviewed by me
--- NOTE | 2024-09-14 11:58 | W.DS.TRANS ---
DC Summary - Floorleader
-
Discharge Instructions:
Discharge Diagnosis/Procedures Choledocholithiasis s/p laparoscopic
cholecystectomy with cholangiogram
Diet Regular,Low Fat
Additional Diets If issues of bloating or diarrhea follow a low-
fat diet
Activity No strenuous activity
Additional Activity No heavy lifting (>20 lbs) or strenuous
activities for 2 to 3 weeks postoperatively
Driving Restrictions No driving if too sore or taking narcotics
Bathing Restrictions OK to Shower
Blood Work cbc and cmp in 1 week with pcp
Others Tests #Intrahepatic hepatic lesions/hemangioma
- Follow-up outpatient GI
Wound Care Keep incisions clean and dry. Glue will flake
off in 2 to 3 weeks. Stitches will dissolve.
Use ice to the abdomen to reduce any bruising or
swelling
Instructions:
Stand-Alone Forms:
Changes to Home Medications: Yes
Discharge Medications:
DC Medications w/original date entered in [employer]
lisinopril 10 mg tablet 10 mg PO DAILY Blood Pressure 09/12/24
acetaminophen 325 mg tablet 650 mg (2 x 325 mg) PO Q4HPRN PRN mild pain #1 tab 09/13/24
ibuprofen 200 mg tablet 400 - 600 mg (2 - 3 x 200 mg) PO Q6HPRN PRN moderate pain #1 tab 09/13/24
oxycodone 5 mg tablet 5 mg PO Q4HPRN PRN breakthrough/severe pain #10 tabs 09/13/24
Home Medication Changes
acetaminophen 325 mg tablet 650 mg (2 x 325 mg) PO Q4HPRN PRN mild pain #1 tab 09/13/24
ibuprofen 200 mg tablet 400 - 600 mg (2 - 3 x 200 mg) PO Q6HPRN PRN moderate pain #1 tab 09/13/24
oxycodone 5 mg tablet 5 mg PO Q4HPRN PRN breakthrough/severe pain #10 tabs 09/13/24
Pending Results: No
--- NOTE | 2024-09-14 12:54 | CM ---
CM following re: discharge planning.
Reviewed pt's chart, met with pt.
Pt is POD#1 Laparoscopic cholecystectomy with intraoperative cholangiogram and laparoscopic common bile duct exploration.
per MD pt is medically stable to be discharged today. Pt is aware and she stated her will transport home.
Pt lives with 2SH, 3 supportive children and pt is independent in all areas [employer]AGE [employer], drives, works.
D/C plan: home with no needs. to transport.
[2024-09-14] MEDS: ROXICODONE 5 MG PO (15:20)
[2024-09-14] MEDS: NSS IV ×2 (15:24)
[2024-09-14 15:40] VITALS: BP 141/88
== END 2024-09-14 16:50 | disposition home or self-care (01) | DRG 413 ==
LOC: 2 SOUTH 03:04
PROVIDERS: Physician Assistant; Surgery; ADMITTING PHYSICIAN Hospitalist; ATTENDING PHYSICIAN Internal Medicine; CONSULT PHYSICIAN Student in an Organized Health Care Education/Training Program; CONSULT PHYSICIAN Surgery; EMERGENCY PHYSICIAN Emergency Medicine; FAMILY PHYSICIAN Family Medicine
PROC: 0FT44ZZ Resection of Gallbladder, Percutaneous Endoscopic Approach (ICD-10-PCS; 2024-09-13)
PROC: 0FJB4ZZ Inspection of Hepatobiliary Duct, Percutaneous Endoscopic Approach (ICD-10-PCS; 2024-09-13)
DX: K80.62 Calculus of gallbladder and bile duct with acute cholecystitis without obstruction (principal); K58.9 Irritable bowel syndrome, unspecified; I10 Essential (primary) hypertension; D50.9 Iron deficiency anemia, unspecified; D18.03 Hemangioma of intra-abdominal structures; E66.9 Obesity, unspecified; Z68.31 Body mass index [BMI] 31.0-31.9, adult; Z79.899 Other long term (current) drug therapy; Z87.891 Personal history of nicotine dependence
CPT/HCPCS: 74177; 74181; 74183; 74300; 76000; 76705; 80048; 80053; 80076; 81003; 82607; 82728; 82746; 83540; 83550; 83690; 85025; 85027; 86704; 86706; 86708; 86803; 86850; 86900; 86901; 87340; 88304; 96361; 96374; 99285; A4300; A9575; J1610; Q9967